=== PATIENT | female | born 1995 | race Two or more races ===

== ENCOUNTER 2024-06-09 14:23 | Emergency (ER) | payer MEDICAID, SELFPAY ==
--- NOTE | 2024-06-09 | XR_ITS ---
MRI abdomen, without contrast. MRCP Date and time of exam: June 09, 2024 at 1645 hrs. Indications: Worsening abdominal pain today, status post cholecystectomy 2 weeks ago Technique: Multiple axial and coronal images of the abdomen have been obtained with the Siemens 1.5T MRI scanner. Images obtained included T1 weighted transverse images, T2-weighted transverse images, T2-weighted transverse images fat-suppressed, T2 weighted haste fat suppressed transverse images, T1 weighted images, in and out of phase images, T2-weighted coronal images, breath hold, T2 weighted haze coronal images as well as T2 weighted coronal thick slab images, MRCP. Findings: Hepatomegaly 19 cm Absent gallbladder Extensive free fluid above lateral and below the liver extending along the right and left paracolic gutter The common hepatic duct measures 11 mm 6 mm stone is present in the distal common bile duct image 12 Pancreas is not enlarged No hydronephrosis Spleen is not enlarged Impression: Extensive free fluid above lateral and below the liver extending along the right and left paracolic gutters, differential would include biliary leak, consider HIDA scan follow-up 6 mm common bile duct stone
[2024-06-09 14:30] VITALS: BP 104/69; PULSE 88; RESP 18; TEMP 36.6; O2SAT 97; BMI 32.1
--- NOTE | 2024-06-09 14:38 | PD.EDBACK ---
ED Back Injury Pain RME/HPI General Chief Complaint: Abdominal Pain Stated Complaint: UPPER ABD PAIN AND MID BACK PAIN Time Seen by Provider: 06/09/24 14:36 Arrival date/time: 06/09/24 14:23 RME / HPI RME / HPI Narrative: 29-year-old female patient with significant history of recent laparoscopic cholecystectomy, done 2 weeks ago, came in for evaluation regarding worsening epigastric pain. Onset of symptoms for the last few hours as worsening epigastric pain, patient was noted to be diaphoretic, and hypotensive. Patient family told me that postsurgery has been having pain went to PCP and was told that pain will be the there for at least 4 weeks. No fever no vomiting no other complaints noted. Patient took Tylenol prior to arrival. Also complained of jaundice for the last few days. Denies any fever. Related Data Home Medications ?Medication ?Instructions ?Recorded ?Confirmed escitalopram oxalate 20 mg tablet 20 mg PO QDAY 01/22/24 05/27/24 (Lexapro) loratadine 10 mg tablet (Claritin) 10 mg PO QDAY 05/27/24 05/27/24 [id number] 1 mg 1 tab PO DAILY 05/27/24 05/27/24 tablet Previous Rx's ?Medication ?Instructions ?Recorded docusate sodium 100 mg capsule 100 mg PO BID #40 caps 05/28/24 (Colace) hydrocodone 5 mg-acetaminophen 325 1 tab PO Q6H PRN pain (scale score 05/28/24 mg tablet 7-10) #15 tabs Allergies Allergy/AdvReac Type Severity Reaction Status Date / Time No Known Allergies Allergy Verified 06/09/24 14:26 Review of Systems Review of Systems Narrative Review of Systems: Review of system reviewed and within normal limits except mentioned in HPI ED Exam Narrative Physical exam: VITAL SIGNS: Reviewed. GENERAL APPEARANCE: Alert and interactive, follows commands, no acute distress, HEAD AND FACE: Non-traumatic. ENT: PERRL, icteric sclera, eyelid no trauma, Mucous membrane moist. NECK: Supple, nontender, no nuchal rigidity. CHEST: No tenderness, no crepitus, no paradoxical movement, no retractions. LUNGS: Clear, well ventilated, symmetric, no rales, no wheezing, no ronchi, no stridor, good breath sounds bilaterally. HEART: Regular rate, regular rhythm, no murmur, no gallops. ABDOMEN: Soft, positive bowel sounds, nondistended, no guarding, epigastric tenderness, no rebound, no masses, RECTAL: Deferred. GENITAL: Deferred. NEUROLOGICAL: Gross motor function intact sensory function intact, Appropriate for age. MUSCULOSKELETAL: low back nontender, full range of motion. EXTREMITIES: Nontender, full range of motion. SKIN: Color pink, dry, no rash, no lacerations, no abrasions, no contusions. LYMPHATICS: Deferred. Course Quality Measures none Orders Category Date Time Status CT Screening NOW Care 06/09/24 14:49 Active MRI Screening NOW Care 06/09/24 15:37 Active MR MRCP Stat Exams 06/09/24 Completed Beta HCG,Quantitative Stat Lab 06/09/24 14:59 Completed CBC Stat Lab 06/09/24 14:59 Completed Comprehensive Metabolic Panel Stat Lab 06/09/24 14:59 Completed Lipase Stat Lab 06/09/24 14:59 Completed Partial Thromboplastin Time Stat Lab 06/09/24 14:59 Completed Prothrombin Time with INR Stat Lab 06/09/24 14:59 Completed UA, C/S IF [Urinalysis, C/S if Indicated] Stat Lab 06/09/24 18:24 Completed Urine Culture Stat Lab 06/09/24 18:24 Received Ketorolac Inj [Toradol Inj] Med 06/09/24 20:50 Discontinued 30 mg IVP X1 ONE Morphine Inj Med 06/09/24 14:40 Discontinued 4 mg IVP X1 ONE Morphine Inj Med 06/09/24 21:39 Discontinued 5 mg IVP X1 ONE Ondansetron Inj [Zofran Inj] Med 06/09/24 14:40 Discontinued 4 mg IV X1 ONE Ondansetron Inj [Zofran Inj] Med 06/09/24 21:24 Discontinued 4 mg IV X1 ONE Piper/Tazo Inj [Zosyn Inj] 3.375 gm Med 06/09/24 21:16 Discontinued Sodium Chloride 0.9% (P) [Ns 0.9% (P)] 50 ml IV X1 Sodium Chloride 0.9% 1000 ml [Ns] 1,000 ml Med 06/09/24 21:32 Active IV 125 mls/hr Sodium Chloride 0.9% 1000 ml [Ns] 1,000 ml Med 06/09/24 14:40 Discontinued IV 999 mls/hr Vital Signs Vital signs: Vital Signs Temperature 97.9 F 06/09/24 14:30 Pulse Rate 88 06/09/24 14:30 Respiratory Rate 18 06/09/24 14:30 Blood Pressure 104/69 06/09/24 14:30 Pulse Oximetry (%) 97 06/09/24 14:30 Oxygen Delivery Method Room Air 06/09/24 14:30 Back Pain / Injury MDM Narrative MDM Narrative:: On my initial evaluation patient was noted to be hypotensive, patient received IV fluids for hydration, morphine Laboratory workup was significant for leukocytosis of 18.1 neutrophil of 12.4 potassium 3.3 sodium 134. Total bili was also noted to be 3.6, AST of 51 and alkaline phos of 462, ALT of 140. MRI of the abdomen and pelvis showed Extensive free fluid above lateral and below the liver extending along the right and left paracolic gutters, differential would include biliary leak, consider HIDA scan follow-up 6 mm common bile duct stone I discussed the case with Dr. Lyman, general surgeon who did the surgery, 2 weeks ago,and told me to transfer the patient. Results discussed with the patient. And family. I told him that the patient is to be transferred to higher level of care due to choledocholithiasis and very the leg. Both of them agrees with the plan. Patient received IV Zosyn. Patient is to be transferred to higher level care for choledocholithiasis, elevated total bili, and biliary leak s/p cholecystectomy 2 weeks ago Spoke with [facility] transfer center, and was able to spoke with Dr. Davidson , GI specialist, and accepted the patient. Patient data External records reviewed:: None Clinical information provided by:: none Social determinants that could affect healthcare access:: none Patient has the following chronic illnesses:: None How is presenting disease/condition affected by chronic disease/condition?: no chronic disease Evaluation data The following diagnostics were reviewed and interpreted by me:: lab results and radiology exam(s) Lab and/or radiology exams considered but not ordered:: None Interpretation Summary: Laboratory workup was significant for leukocytosis of 18.1 neutrophil of 12.4 potassium 3.3 sodium 134. Total bili was also noted to be 3.6, AST of 51 and alkaline phos of 462, ALT of 140. MRI of the abdomen and pelvis showed Extensive free fluid above lateral and below the liver extending along the right and left paracolic gutters, differential would include biliary leak, consider HIDA scan follow-up 6 mm common bile duct stone Medications / Prescriptions Medications or Prescriptions considered but not ordered:: None Medication administrations:: Medication Administration History Sodium Chloride (Ns) 1,000 mls @ 125 mls/hr IV .Q8H ONE Stop: 06/10/24 05:31 Last Admin: 06/09/24 21:35 Dose: 125 mls/hr Documented By: CCT Discontinued Medications Sodium Chloride (Ns) 1,000 mls @ 999 mls/hr IV .Q1H1M ONE Stop: 06/09/24 15:40 Last Infusion: 06/09/24 17:22 Dose: Infused Documented By: Admin: 06/09/24 14:55 Dose: 999 mls/hr Documented By: DO Piperacillin Sod/Tazobactam (Sod 3.375 gm/ Sodium Chloride) 50 mls @ 100 mls/hr IV X1 ONE Stop: 06/09/24 21:45 Last Admin: 06/09/24 21:23 Dose: 100 mls/hr Documented By: CCT Ketorolac Tromethamine (Ketorolac Inj 30 Mg/Ml Vial) 30 mg IVP X1 ONE Stop: 06/09/24 20:51 Last Admin: 06/09/24 21:22 Dose: 30 mg Documented By: CCT Morphine Sulfate (Morphine Sulf Inj 10 Mg/Ml Vial) 4 mg IVP X1 ONE Stop: 06/09/24 14:41 Last Admin: 06/09/24 14:57 Dose: 4 mg Documented By: DO Morphine Sulfate (Morphine Sulf Inj 10 Mg/Ml Vial) 5 mg IVP X1 ONE Stop: 06/09/24 21:40 Last Admin: 06/09/24 21:44 Dose: 5 mg Documented By: CCT Ondansetron HCl (Ondansetron Inj 2 Mg/Ml Inj 2 Ml) 4 mg IV X1 ONE; Protocol Stop: 06/09/24 14:41 Last Admin: 06/09/24 14:57 Dose: 4 mg Documented By: DO Ondansetron HCl (Ondansetron Inj 2 Mg/Ml Inj 2 Ml) 4 mg IV X1 ONE; Protocol Stop: 06/09/24 21:25 Last Admin: 06/09/24 21:29 Dose: 4 mg Documented By: CCT Toradol morphine Zofran IV fluids for hydration. Patient was also given IV Zosyn. Consultations Consultation(s) initiated? (list below): Yes Consultation #1 (Physician, Specialty, Details): Spoke with Dr. Lyman, general surgeon, and agrees with the plan to transfer the patient for ERCP and repair of biliary leak Diagnosis Differential diagnosis back pain/injury: other (Abdominal pain, biliary leak, choledocholithiasis) Most likely diagnosis given after review of the tests above:: Abdominal pain, biliary leak, choledocholithiasis Admission Indicated Admission indicated?: indicated Admission Request Was there a request for admission?: No Disposition Plan Disposition Plan: Transfer Discharge Plan Plan Patient Disposition: er Acute Care Fac Prescriptions/Referrals Prescriptions/Med Rec: No Action [id number] 1 mg Tablet 1 tab PO DAILY loratadine [Claritin] 10 mg Tablet 10 mg PO QDAY docusate sodium [Colace] 100 mg capsule 100 mg PO BID Qty: 40 0RF hydrocodone-acetaminophen 5-325 mg tablet 1 tab PO Q6H MDD 4 PRN (Reason: pain (scale score 7-10)) Qty: 15 0RF escitalopram oxalate [Lexapro] 20 mg tablet 20 mg PO QDAY Patient Comments: Take 1 tablet by mouth once a day Referrals: Phoebe Senior FNP [Primary Care Provider] - In 1 week Problem List Clinical Impression: Abdominal pain, Bile leak, postoperative, Obstructive jaundice, Choledocholithiasis Patient/Caregiver Discharge Instructions Print Language: Ghanaian Stand Alone Forms: [facility] Award Info., Patient Portal Info Letter
[2024-06-09] MEDS: SODIUM CHLORIDE 0.9% 1000 ML 1,000 ML 999 ML IV (14:55)
[2024-06-09] MEDS: ONDANSETRON INJ 2 MG/ML INJ 2 ML 4 MG IV ×2 (14:57→21:29)
[2024-06-09] MEDS: MORPHINE SULF INJ 10 MG/ML VIAL 4 MG IVP (14:57)
[2024-06-09 15:13] LABS: Basophils # (Auto) 0.1 Thou/mm3 (0.0-0.2); Basophils % (Auto) 1 % (0-2.5); Eosinophils # (Auto) 0.4 Thou/mm3 (0.0-0.5); Eosinophils % (Auto) 2 % (0-10); Hematocrit 38.7 % (36.0-46.0); Hemoglobin 12.7 g/dL (12.0-16.0); Immature Granulocytes % (Auto) 1 % (0-0); Immature Granulocytes Auto 0.19 Thou/mm3 (0.00-0.00); Lymphocytes % (Auto) 22 % (10-50); Mean Corpuscular HGB Conc 32.8 g/dl (31.0-37.0); Mean Corpuscular Hemoglobin 28.7 pg (25.0-35.0); Mean Corpuscular Volume 88 fL (80-100); Monocytes % (Auto) 6 % (0-12); Neutrophils # (Auto) 12.4 Thou/mm3 (1.8-7.7); Neutrophils % (Auto) 69 % (37-80); Nucleated Red Blood Cell % 0 /100 WBC (0); Platelet Count 477 Thou/mm3 (140-440); RDW Standard Deviation 47.7 fL (36.4-46.3); Red Blood Count 4.42 Miln/mm3 (4.00-5.20); White Blood Count 18.1 Thou/mm3 (3.6-11.0)
[2024-06-09 15:24] LABS: Partial Thromboplastin Time 26.3 Seconds (22.0-36.0); Prothrombin Time 10.9 Seconds (9.0-12.2)
[2024-06-09 15:28] LABS: Alanine Aminotransferase 140 U/L (10-49); Albumin, Serum 4.5 gm/dL (3.5-5.0); Albumin/Globulin Ratio 1.6 (1.2-2.2); Alkaline Phosphatase 462 U/L (46-116); Anion Gap 7 (7-16); Aspartate Amino Transferase 51 U/L (0-34); BUN/Creatinine Ratio 16 Ratio (12-20); Beta HCG,Quantitative 1 mIU/mL (<5.0); Bilirubin,Total 3.6 mg/dL (0.3-1.2); Blood Urea Nitrogen 11 mg/dL (9-23); Calcium 9.7 mg/dL (8.3-10.6); Calcium (Corrected) 9.7 mg/dL (8.5-10.1); Carbon Dioxide 25.3 mMol/L (20.0-31.0); Chloride 102 mMol/L (98-107); Creatinine (Component) 0.7 mg/dL (0.6-1.3); Estimated Creatinine Clearance 113.4 mL/min (>60); Globulin 2.8 gm/dL (2.3-3.5); Glucose 143 mg/dL (74-106); Lipase 32 U/L (12-53); Osmolality,Calculated 269 (275-295); Potassium 3.3 mMol/L (3.4-5.1); Sodium 134 mMol/L (136-145); Total Protein 7.3 gm/dL (5.7-8.2); eGFR > 60 See Note
[2024-06-09 16:06] VITALS: BP 116/74; PULSE 81; RESP 18; TEMP 36.6; O2SAT 99
--- NOTE | 2024-06-09 16:35 | PC.NURSE ---
pt taken to MRI.
[2024-06-09 18:21] VITALS: BP 109/67; PULSE 87; RESP 16; TEMP 36.9; O2SAT 96
[2024-06-09 18:33] LABS: Collection Type, Urine Clean Catch; RBC,Urine 0 /hpf (0-3); WBC,Urine 0 /hpf (0-5)
[2024-06-09 19:14] LABS: Bacteria,Urine 1+; Bilirubin,Urine Negative (Negative); Blood,Urine Negative (Negative); Clarity,Urine Clear (Clear/Hazy); Color,Urine Yellow (Lt Yel-Yel); Glucose, Urine Negative (Negative); Ketones,Urine Trace (Negative); Leukocyte Esterase,Urine Negative (Negative); Nitrite,Urine Negative (Negative); Protein,Urine Negative (Neg - Trace); Specific Gravity,Urine 1.014 (1.001-1.035); Squamous Epithelial Cell,Urine 5 /hpf (0-5); Urobilinogen,Urine Negative mg/dL (0.0-1.0)
[2024-06-09 19:15] LABS: Culture Indicated,Urine Yes
[2024-06-09] MEDS: KETOROLAC INJ 30 MG/ML VIAL IVP (21:22)
[2024-06-09] MEDS: PIPER/TAZO INJ 3.375 GM in SODIUM CHLORIDE 0.9% (P) 50 ML IV (21:23)
[2024-06-09 21:30] VITALS: BP 139/81; PULSE 84; RESP 18; TEMP 37.2; O2SAT 96
[2024-06-09] MEDS: SODIUM CHLORIDE 0.9% 1000 ML 1,000 ML 125 ML IV (21:35)
[2024-06-09] MEDS: MORPHINE SULF INJ 10 MG/ML VIAL 5 MG IVP (21:44)
--- NOTE | 2024-06-09 22:33 | PC.NURSE ---
2231, ACCEPTED TO [facility] , ED TO ED, REPORT # [phone], SPOKE TO ASHLEY
[2024-06-09 23:45] VITALS: BP 112/60; PULSE 91; RESP 18; TEMP 37.1; O2SAT 95
--- NOTE | 2024-06-09 23:45 | PC.NURSE ---
Report given to Ashley Posey at [facility]
--- NOTE | 2024-06-10 | PC.NURSE ---
[facility] here to transfer pt to [facility], report given to EMT Ector.
== END 2024-06-10 00:12 | disposition short-term general hospital (02) ==
PROVIDERS: Nurse Practitioner Family; Emergency Provider Emergency Medicine; PCP Nurse Practitioner Family
DX: K91.89 Other postprocedural complications and disorders of digestive system (principal); K80.51 Calculus of bile duct without cholangitis or cholecystitis with obstruction; Y83.8 Other surgical procedures as the cause of abnormal reaction of the patient, or of later complication, without mention of misadventure at the time of the procedure; Z75.1 Person awaiting admission to adequate facility elsewhere
CPT/HCPCS: 36415; 80053; 81001; 81025; 83690; 84702; 85025; 85610; 85730; 87086; 96361; 96365; 96375; 96376; 99285; J1885; J2270; J2405; J2543; J7030; J7050; S8037; 74181